=== PATIENT | female | born 1990 | race Two or more races ===

== ENCOUNTER 2017-01-02 16:21 | Emergency (ER) | payer SELFPAY ==
[2017-01-02 16:34] VITALS: BP 141/84
[2017-01-02] MEDS ORDERED: KETOROLAC 60 MG/2 ML INJ. IM ONE (17:15)
[2017-01-02] MEDS ORDERED: ORPHENADRINE CITRATE 60 MG/2 ML VIAL. IM ONE (17:15)
[2017-01-02] MEDS ORDERED: traMADol 50 MG TABLET PO ONE (17:15)
[2017-01-02] MEDS ORDERED: TRAM-48 PO (17:41)
[2017-01-02] MEDS ORDERED: CYCL10TA2 PO (17:41)
[2017-01-02] MEDS ORDERED: IBUP-1007 PO (17:41)
--- NOTE | 2017-01-02 17:42 | PHYS DOC ---
Past Medical History Past Medical History: No Pertinent History Past Surgical History: No Surgical History Alcohol Use: None Drug Use: None Adult General Chief Complaint Chief Complaint: LOWER BACK PAIN OR INJURY HPI HPI Patient is a 26 year old female who presents here today complaining of lower back pain since Thursday. Patient reports that she has a history of chronic lower back pain and she normally takes Tylenol for it however over the last couple days she reports the pain is been increasing. Patient reports that she's to work in a [employer] center. No heavy lifting,. Patient denies any weakness to her upper or lower 70s. Patient has a loss of bowel or bladder function. Patient has any paresthesias to her lower extremities. Patient has any fevers shakes chills nausea vomiting diarrhea dysuria frequency or urgency. Patient has a history of hypertension diabetes liver longer kidney pals. Patient does not smoke drink or do drugs. Patient is allergic to any medications. LMP is current. Review of systems: Constitutional: Denies fever or chills Eyes: Denies change in visual acuity, redness, or eye pain All other systems were reviewed and found to be within normal limits, except as documented in this note. Physical exam: Constitutional: Well developed, well nourished, no acute distress, non-toxic appearance. HENT: Normocephalic, atraumatic, bilateral external ears normal, Eyes: EOMI, conjunctiva normal, no discharge. Neck: Normal range of motion, no tenderness, supple, no stridor. Cardiovascular:Heart rate regular rhythm Lungs & Thorax: Bilateral breath sounds clear to auscultation Abdomen: Bowel sounds normal, soft, no tenderness, no masses, no pulsatile masses. Skin: Warm, dry, no erythema, no rash. Back: No tenderness, no CVA tenderness. Extremities: No tenderness, no cyanosis, no clubbing, ROM intact, no edema. Neurologic: Alert and oriented X 3, normal motor function, normal sensory function, no focal deficits noted. Psychologic: Affect normal, judgement normal, mood normal. Patient's ER physical exam is significant for tenderness to palpation diffusely to her lower back. Patient does not have any specific point C-spine T-spine or L -spine tenderness to palpation. Patient does not have retroperitonitis. Patient' s pain is over her left and right iliac crest. Patient has a normal neurological exam. Patient's sensory intact bilaterally and equal. Patient has motor strength is 5 out of 5. Patient's and bleeding the ED without any difficulty. Patient denies any perianal or perineal paresthesias. Assessment and plan This is a 26-year-old female who presents to the ER today secondary to acute exacerbation of her chronic lower back pain. Patient be given adequate analgesia in the ER and will be discharged home with pain medicines. Patient will be instructed to follow-up with her primary care physician/clinic for further evaluation and management of her chronic pain issues. Patient does not present with any signs or symptoms of be concerning for an acute neurological deficit. Current Medications Current Medications Current Medications Medications (Trade) Dose Ordered Sig/[place] Start Time Stop Time Status Last Admin Dose Admin Ketorolac Tromethamine (Toradol Im) 30 mg 1X ONCE 01/02/17 17:15 01/02/17 17:16 DC 01/02/17 17:25 30 MG Orphenadrine Citrate (Norflex) 60 mg 1X ONCE 01/02/17 17:15 01/02/17 17:16 DC 01/02/17 17:25 60 MG Tramadol HCl (Ultram) 50 mg 1X ONCE 01/02/17 17:15 01/02/17 17:16 DC 01/02/17 17:26 50 MG Allergies Allergies Allergies Coded Allergies Type Severity Reaction Last Updated Verified No Known Drug Allergies 01/02/17 No Current Patient Data Vital Signs Vital Signs Date Time Temp Pulse Resp B/P (MAP) Pulse Ox O2 Delivery O2 Flow Rate FiO2 01/02/17 17:26 16 01/02/17 16:34 98.1 100 141/84 (103) 97 Room Air 98.1 EKG EKG [] Radiology/Procedures Radiology/Procedures [] Course & Med Decision Making Course & Med Decision Making Pertinent Labs and Imaging studies reviewed. (See chart for details) [] Dragon Disclaimer Dragon Disclaimer This electronic medical record was generated, in whole or in part, using a voice recognition dictation system. Departure Departure Impression: Primary Impression: Low back pain Additional Impression: Obesity Disposition: 01 HOME, SELF-CARE Condition: IMPROVED Referrals: NO PCP (PCP) Patient Instructions: Low Back Sprain with [facility], Obesity, Easy-to- Read Scripts Tramadol Hcl (ULTRAM) 50 Mg Tablet 1 TAB PO Q6HRS, #14 TAB Prov: VIANNEY HOFF MD 01/02/17 Ibuprofen (IBUPROFEN) 600 Mg Tablet 600 MG PO PRN Q6HRS Y for PAIN, #20 TAB Prov: VIANNEY HOFF MD 01/02/17 Cyclobenzaprine Hcl (CYCLOBENZAPRINE HCL) 10 Mg Tablet 10 MG PO TID Y for MUSCLE PAIN, #20 TAB Prov: VIANNEY HOFF MD 01/02/17 Problem Qualifiers VIANNEY HOFF MD Jan 02, 2017 17:42
== END 2017-01-02 17:52 | disposition home or self-care (01) ==
LOC: ER 16:21
DX: M54.5 Low back pain (principal); E66.9 Obesity, unspecified; G89.29 Other chronic pain; I10 Essential (primary) hypertension; E11.9 Type 2 diabetes mellitus without complications
CPT/HCPCS: 96372; 99284; J1885; J2360